=== PATIENT | female | born 1940 | race Caucasian/White ===

== ENCOUNTER 2016-08-23 08:52 | Day surgery (SDC) | payer MEDICARE ==
[2016-08-23] MEDS ORDERED: LACTATED RINGERS 1,000 ML IV ONE (09:12)
[2016-08-23] MEDS ORDERED: ceFAZolin 1 GM VIAL ONE (09:25)
[2016-08-23] MEDS ORDERED: BUPIVACAINE 0.25% PF 30 ML VIAL SUBQ ONE ×2 (10:14)
[2016-08-23] MEDS ORDERED: fentaNYL 100 MCG/2 ML VIAL IVP ONE (10:45)
[2016-08-23] MEDS ORDERED: PROPOFOL 200 MG/20 ML VIAL IVP ONE (10:45)
[2016-08-23] MEDS ORDERED: LIDOCAINE-MPF 2% 5 ML VIAL IM ONE (10:45)
[2016-08-23] MEDS ORDERED: MIDAZOLAM 2 MG/2 ML VIAL IVP ONE (10:45)
[2016-08-23] MEDS ORDERED: ACETAMINOPHEN 1,000 MG/100 ML 100 ML IV ONE (11:30)
== END 2016-08-23 08:53 | disposition home or self-care (01) ==
PROC: 0LN70ZZ Release Right Hand Tendon, Open Approach (ICD-10-PCS; principal; 2016-08-23 10:15)
DX: M65.311 Trigger thumb, right thumb (principal); M19.90 Unspecified osteoarthritis, unspecified site; F17.210 Nicotine dependence, cigarettes, uncomplicated; Z88.8 Allergy status to other drugs, medicaments and biological substances; Z82.62 Family history of osteoporosis; Z80.1 Family history of malignant neoplasm of trachea, bronchus and lung; Z80.8 Family history of malignant neoplasm of other organs or systems; Z82.49 Family history of ischemic heart disease and other diseases of the circulatory system
CPT/HCPCS: 26055; J0131; J7120

== ENCOUNTER 2017-08-19 13:29 | Outpatient (CLI) | payer MEDICARE ==
--- NOTE | 2017-08-20 19:54 | Mammography Report ---
DATE OF SERVICE: 08/19/2017 DIGITAL SCREENING MAMMOGRAM: 08/19/2017 CLINICAL INDICATION: A 77-year-old with history of benign biopsies for screening. TECHNIQUE: Routine CC and MLO projections as well as bilateral laterally exaggerated craniocaudal views were obtained of the breasts. COMPARISON: 02/2015, 09/2013, 09/2012, 09/2011, 05/2010, 04/2010. The breasts again demonstrate heterogeneously dense fibroglandular parenchyma bilaterally. Coarse and punctate, typically benign calcifications are present. There is a shifting pattern of circumscribed nodules bilaterally, compatible with waxing and waning cysts. No suspicious masses, clustered microcalcifications, or regions of architectural distortion are identified. IMPRESSION: Benign findings. RECOMMENDATIONS: Routine annual screening unless otherwise clinically indicated. BIRADS category 2 benign findings. STANDARD QUALIFYING STATEMENTS 1. This examination was reviewed with the aid of Computed-Aided Detection (CAD). 2. A negative or benign imaging report should not delay biopsy if clinically suspicious findings are present. Consider surgical consultation if warranted. More than 5% of cancers are not identified by imaging. 3. Dense breasts may obscure an underlying neoplasm. TD: 08/20/2017 20:53
== END 2017-08-19 13:30 | disposition home or self-care (01) ==
LOC: DI 13:29
PROVIDERS: ATTEND Internal Medicine
DX: Z12.31 Encounter for screening mammogram for malignant neoplasm of breast (principal)
CPT/HCPCS: 77067

== ENCOUNTER 2021-01-28 14:18 | Outpatient (CLI) | payer MEDICARE ==
--- NOTE | 2021-01-28 18:38 | Ultrasound Report ---
PROCEDURE: Pelvic w/Transvaginal INDICATIONS: VAG BLEEDING TECHNIQUE: Real-time scanning was performed of the pelvic organs, with image documentation. Additional endovagi nal scanning was necessary due to incomplete visualization of the adnexal and endometrial structures by transabdominal scanning. COMPARISON: None. FINDINGS: No pathologic free abdominal or pelvic fluid. Uterus: Uterus is normal in size at 8.8 x 4.6 x 6.7 cm. There are 2 incidental uterine fibroids, a l eft intramural fibroid measuring 3.6 x 3.0 x 3.2 cm, and a right submucosal fibroid measuring 2.9 x 2 .6 x 2.9 cm. The endometrium measures 28 mm in combined thickness, and has internal vascularity.. Ovaries: Not visualized, possibly secondary to involutional change IMPRESSION: 1. Findings are highly suspicious for endometrial carcinoma. There is marked thickening of the endome trium and there is flow within the endometrial contents. 2. Uterine fibroids. Comment: Consider CT abdomen and pelvis with contrast. 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 Reviewed by: Naveed Ruby MD on 01/28/2021 5:37 PM MICHEL Approved by: Naveed Ruby MD on 01/28/2021 5:37 PM MICHEL Station ID: [id number]
== END 2021-01-28 14:19 | disposition home or self-care (01) ==
LOC: DI 14:18
PROVIDERS: ATTEND Internal Medicine
DX: N93.9 Abnormal uterine and vaginal bleeding, unspecified (principal); R93.89 Abnormal findings on diagnostic imaging of other specified body structures; D25.1 Intramural leiomyoma of uterus; D25.0 Submucous leiomyoma of uterus

== ENCOUNTER 2021-03-06 13:59 | Outpatient (CLI) | payer MEDICARE | END 2021-03-06 14:00 | disposition home or self-care (01) | LOC: RT 13:59 | PROVIDERS: ATTEND Obstetrics & Gynecology | DX: Z01.810 Encounter for preprocedural cardiovascular examination (principal) | CPT/HCPCS: 93005 ==

== ENCOUNTER 2021-04-13 11:05 | Outpatient (CLI) | payer MEDICARE ==
[2021-04-13] MEDS ORDERED: IOPAMIDOL-300 100 ML VIAL ONE (11:10)
[2021-04-13] MEDS ORDERED: IOVERSOL 320 50 ML VIAL ONE (11:10)
[2021-04-13 11:29] LABS: CREATININE 1.1 mg/dL (0.4-1.0)
[2021-04-13] MEDS ORDERED: IOVERSOL 320 50 ML VIAL PO ONE (13:08)
[2021-04-13] MEDS ORDERED: IOPAMIDOL-300 100 ML VIAL IVP ONE (13:09)
--- NOTE | 2021-04-13 15:31 | CT Report ---
PROCEDURE: Abdomen/Pelvis W INDICATIONS: FIGO STAGE 2 ENDOMETRIAL CA CONTRAST: IV CONTRAST: Isovue 300 ml: 100 PO CONTRAST: Optiray 320 ml50 TECHNIQUE: After the administration of oral and intravenous contrast, 5 mm thick sections acquired from the diap hragms to the symphysis. 5 mm thick coronal and sagittal reformats were acquired. For radiation dos e reduction, the following was used: automated exposure control, adjustment of mA and/or kV accordin g to patient size. COMPARISON: Pelvic ultrasound 01/28/2021 FINDINGS: Image quality: Excellent. ABDOMEN: Lung bases: Please see the separate report of the chest CT performed the same time for detailed intra thoracic findings. Solid organs: Liver and spleen are normal in size and enhancement. Gallbladder is surgically absent . Biliary system is non dilated. Pancreas enhances normally. No adrenal nodules. Kidneys demonstr ate normal size and enhancement, without hydronephrosis. Peritoneum and bowel: Numerous diverticula are seen in the sigmoid colon without signs of acute diver ticulitis. No free fluid or air. Nodes and vessels: No retroperitoneal or mesenteric adenopathy by size criteria. Aorta and inferior vena cava are normal in size. Moderate aortic atherosclerotic calcifications. Miscellaneous: No ventral hernias. PELVIS: Genitourinary: Bladder wall thickness is normal. Status post hysterectomy. No focal pelvic mass is seen. Miscellaneous: A well-defined hypoattenuating area measuring 2.0 x 1.2 cm (60/3) is seen at the left pelvic sidewall adjacent to the adjacent to the left external iliac vein could represent a mildly enl arged lymph node versus postsurgical scarring or fluid. A few small left pelvic sidewall lymph nodes are seen measuring up to 6 mm and short axis diameter, not significantly enlarged by CT size criteria . Bones: No suspicious bony lesions. No vertebral body compression fractures. Degenerative changes a re seen in the sacroiliac joints and the lumbar spine. IMPRESSION: 1. Postsurgical changes from hysterectomy. No mass is seen at the vaginal cuff. 2. Nonspecific poorly defined low-density lesion at the left pelvic sidewall measuring 2.0 x 1.2 cm could represent postsurgical changes versus focal fluid or less likely a mildly enlarged lymph node. 3. No signs of distant metastatic disease in the abdomen or pelvis. 4. Colonic diverticulosis. Reviewed by: Brad Maguire MD on 04/13/2021 3:29 PM PDT Approved by: Brad Maguire MD on 04/13/2021 3:29 PM PDT Station ID: [id number]
--- NOTE | 2021-04-13 17:25 | CT Report ---
PROCEDURE: CHEST W INDICATIONS: FIGO STAGE 2 ENDOMETRIAL CA CONTRAST: IV CONTRAST: Isovue 300 ml: 100 PO CONTRAST: Optiray 320 ml50 TECHNIQUE: After the administration of intravenous contrast, images were acquired from the pulmonary apices to t he posterior costophrenic angles. Multiplanar MIP reformats were acquired. For radiation dose reduc tion, the following was used: automated exposure control, adjustment of mA and/or kV according to pa tient size. COMPARISON: None. FINDINGS: Image quality: Excellent. Lungs and pleura: There is biapical scarring. Scattered atelectasis in bilateral mid to lower lung f ields are seen more prominent in anterior medial aspect of left lung base. 6 mm solid nodule is seen adjacent to posterior lateral pleura of right lower lobe series 3 image 239. 4 mm slightly spiculated nodule is seen adjacent to posterior pleura of left upper lobe series 3 image 111. No other pulmonar y nodule or mass is seen. No pleural effusions or pneumothorax. Central and peripheral airways are p atent and normal in caliber. Mediastinum: Heart size is normal. No pericardial effusion. No mediastinal or hilar adenopathy by size criteria. Thoracic aorta and central pulmonary arteries are normal in size. Mild atherosclerot ic calcifications are noted in coronary arteries and thoracic aorta. Esophagus is normal in caliber. No hiatal hernia. Bones and chest wall: No suspicious bony lesions. No vertebral body compression fractures. No axil junito or supraclavicular adenopathy by size criteria. The thyroid is normal in size and there are no incidental findings.. Abdomen: Please refer to CT of abdomen and pelvis findings from the same day. IMPRESSION: 1. Biapical scarring and scattered atelectasis in bilateral lung espinal most prominent in left lung b ase as above. 2 tiny solid-appearing nodules in right lower lobe and left upper lobe as described abo ve. Follow-up CT study in 6-12 month is recommended for evaluation of stability. 2. No mediastinal or hilar lymphadenopathy. Mild coronary arthrosclerotic disease. No thoracic aortic aneurysm or dissection. CLINICAL RECOMMENDATION STATEMENTS: In patients <35 years with an ITN detected on CT, MRI, or extrathyroidal ultrasound, the Committee re commends further evaluation with dedicated thyroid ultrasound if the nodule is ?1 cm and has no suspi cious imaging features, and if the patient has normal life expectancy. In patients ?35 years with an ITN detected on CT, MRI, or extrathyroidal ultrasound, the Committee re commends further evaluation with dedicated thyroid ultrasound if the nodule is ?1.5 cm and has no saravanan picious imaging features, and if the patient has normal life expectancy. (ACR, 2014) Reviewed by: Demetrio Jenkins MD on 04/13/2021 5:24 PM PDT Approved by: Demetrio Jenkins MD on 04/13/2021 5:24 PM PDT Station ID: [id number]
== END 2021-04-13 11:06 | disposition home or self-care (01) ==
LOC: LAB 11:05
PROVIDERS: ATTEND Obstetrics & Gynecology
DX: C54.1 Malignant neoplasm of endometrium (principal); R93.5 Abnormal findings on diagnostic imaging of other abdominal regions, including retroperitoneum; K57.30 Diverticulosis of large intestine without perforation or abscess without bleeding; J98.11 Atelectasis; J98.4 Other disorders of lung; R91.8 Other nonspecific abnormal finding of lung field; I25.10 Atherosclerotic heart disease of native coronary artery without angina pectoris
CPT/HCPCS: 36415; 71260; 74177; 82565; 84520; Q9967

== ENCOUNTER 2021-06-16 10:15 | Outpatient (CLI) | payer MEDICARE ==
--- NOTE | 2021-06-16 13:51 | CONSULTATION NOTE ---
Palliative Care Consultation - Referral Referring Provider: Dr. Winston Hammond/Caron Carbajal PA-C Time of Visit: [id number] [place] [facility] [place]erral Reason: Uterine cancer/Advanced care planning - Information Sources Records reviewed: Previous records reviewed History/Review of Systems obtained from: Patient, Family (spouse, Morris) Exam limitations: Clinical condition (+[facility]) - History of Present Illness Brief History of Present Illness: This is a 81-year-old female who was seen and evaluated today for initial palliative care consultation due to uterine cancer and advance care planning. She is seen in the [facility] [place] with her spouse, Morris present and prefers to go by Karlene. Provider wore N95 mask. Patient noted vaginal spotting in January 2021 and presented to her PCP where she had a Pap obtained that was abnormal. She then was referred for transvaginal pelvic ultrasound and gynecology and was found to have abnormal biopsy result. She is status post SHAHID/BSO and is on carboplatin/paclitaxel weekly with a 3 week on and 1 week off cycle. Presently, her greatest complaint is in regards to fatigue. She does space out her activities to conserve her energy. Since initiation of chemotherapy she reports a diminished appetite and will "nipple" throughout the day. She is appreciated approximately 12 to 14 pound weight loss since January 2021. She is right-hand dominant and her port is on her right chest wall. She finds that having the port on the right chest wall can interfere with some of her a ctivities due to discomfort such as holding a book for long period of time or vacuuming. When she resolves the activity then the pain is resolved. She takes antiemetic therapy on the Saturday and Saturday following chemotherapy and this results in constipating effects. She is able to manage this with stool softener on these days and has recently utilized prune juice with positive effects. She denies constipation as an issue at the present time. She is drinking a lot of water throughout the day and despite cutting back before bed will often wake up due to nocturia. Sometimes it can take a bit of time before she falls back to sleep. She is napping during the day. Typically getting approximately 6 to 7 hours of sleep a night. She is presently can completing a course of Bactrim for acute cystitis. She is no longer having dysuria. Patient is seen in treatment chair with right port accessed, well-groomed no evidence of acute distress. Medical/Surgical History - Past Medical History Cardiovascular: reports: Hypertension Respiratory: reports: None Endocrine/Autoimmune: reports: None GI: reports: Colon polyps, Other (Lactose intolerant) [facility]: reports: Uterine cancer (2020) : reports: Other (Over active bladder) HEENT: reports: None Psych: reports: None Musculoskeletal: reports: Chronic back pain (since age 19 due to "disc problem.") Derm: reports: None MRSA Hx?: No - Past Surgical History General: reports: Cholecystectomy (2010), Appendectomy, Bowel surgery (partial colectomy 2004), Other (+tonsilectomy 1951) /[facility]: reports: Other (+TH/BSO; breast biopsies x 4 (benign)) Derm: reports: Skin grafts - Substance History Use: Uses substance without health or social issues: Tobacco (Less than 1/2 pack per day--has quite in the past) Social History - Living Situation Living arrangement: At home Living Situation: With spouse/s.o. Support System: Patient grew up in [place], [place]. 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 She and her , Morris will have been 60 years in July 2021. They have 2 children, a girl and a boy. Their daughter resides in [place]. Their son resides in [place], [place] and through him they have 2 grandchildren. They relocated to [facility] in [place]. Prior to Covid19 the patient was involved with a [employer] group and every year would go to a quilting retreat at [facility]. She enjoys reading, watching TV. Her constant highway maintenance crew worker is her Siamese cat, cocoa. The couple also have dacMatternetvt. They live on a 5 [address] property. Has received her Samanta Shoesid19 booster. Family History - Family History Family History: Mother: , Father: , Sister: Alive and Well, Cancer (Colon Cancer) Family History Comment/Other: Father at age 89 with lung cancer; mother at age 87 due to Alzheimer's disease; daughter was born with cerebral palsy and was premature. Medications/Allergies - Medications Home Medications: Ambulatory Orders Medication Instructions Recorded Confirmed Vit D3-Vit K/Berberine/Hops 2,000 units ORAL DAILY 11/17/14 05/12/21 [Ostera Tablet] Lidocaine/Prilocain 2.5% Cream 5 applic TOP UD #1 gm 04/18/21 05/12/21 [Emla 2.5% Cream] Ondansetron HCl [Zofran] 8 mg PO UD #32 tab 04/18/21 05/12/21 Prochlorperazine Maleate 10 mg PO Q6HR PRN #30 tab 04/18/21 05/12/21 [Compazine] Diphenoxylate/Atropine [Lomotil] 2.5 mg PO PRN 05/26/21 Acetaminophen [Acetaminophen Extra 1 tab PO TID PRN 06/16/21 06/16/21 Strength] Docusate Sodium [Dok] 100 mg PO QPM PRN 06/16/21 06/16/21 Senna [Senokot] 8.6 mg PO QPM PRN 06/16/21 06/16/21 dexAMETHasone [Decadron] 8 mg PO DAILY #30 tablet 06/16/21 - Allergies Allergies/Adverse Reactions: Allergies Allergy/AdvReac Type Severity Reaction Status Date / Time aspirin AdvReac Nausea Verified 06/16/21 13:59 NSAIDS (Non-Steroidal AdvReac Nausea Verified 08/22/16 14:16 Anti-Inflamma Review of Systems - Constitutional Constitutional: reports: Fatigue, Weight loss (since January 2021). denies: Fever - Eyes Eyes: reports: Corrective lenses. denies: Irritation - Ears, Nose & Throat Ears, Nose & Throat: reports: Hearing loss, Hearing aids, Tinnitus, Other (Bad taste in mouth) - Cardiovascular Cardiovascular: reports: Edema (in the evenings-- mild that will resolve over night with elevation). denies: Chest pain, Exertional dyspnea - Respiratory Respiratory: reports: Cough (intermittent, +tobacco abuse), Sputum production (clear when occurs with cough). denies: Wheezing - Gastrointestinal Gastrointestinal: reports: Constipation (see HPI), Nausea (resolved with zofran), Good appetite. denies: Abdominal pain, Abdominal distention, Diarrhea, Vomiting - Genitourinary Genitourinary: denies: Dysuria (resolved with Bactrim DS course with last dose today) - Musculoskeletal Musculoskeletal: reports: Back pain (chronic). denies: Transfer issues - Integumentary Integumentary: denies: Rash - Neurological Neurological: denies: Headache, Dizziness - Psychiatric Psychiatric: reports: Depression (ocassionally) - Endocrine Endocrine: denies: Diabetes type 2 - All Other Systems All Other Systems: reports: Reviewed and negative Physical Exam - Vital Signs Temperature: 36.2 C Pulse Rate: 84 O2 Saturation: 97 (on RA) Blood Pressure: 126/53 - Physical Exam General Appearance: positive: No acute distress, Alert Eyes Bilateral: positive: Normal inspection, Other (+corrective lenses) ENT: positive: No signs of dehydration, Other (+hearing aids in place) Neck: positive: Trachea midline Cardiovascular: positive: Regular rate & rhythm, No murmur Respiratory: positive: No respiratory distress, Breath sounds nml, Other (+right chestwall port). negative: Wheezes Abdomen: positive: Non-tender, Soft, Nml bowel sounds. negative: Distended Skin: positive: No symptoms Extremities: positive: No pedal edema Neurologic/Psychiatric: positive: Oriented x3, Mood/affect nml, Other (+Reserved) Palliative Care - POLST Patient has POLST: No Pain: No pain Tiredness/Fatigue: Moderate (4-6) Drowsiness/Sedation: Moderate (4-6) Nausea: Mild (1-3) Anorexia: Moderate (4-6) Dyspnea: None Depression: Mild (1-3) Anxiety: Moderate (4-6) Feelings of wellbeing/Perceived Quality of Life: Good Sleep: Sleeps well Constipation: Yes, Managed Performance Status: Patient is ambulatory without assistive device. No history of falls. Reduced activity due to right chest wall port. PPS 80% - Palliative Care Discussion: Patient presents with no sick significant burden related to disease process and chemotherapy as fatigue and constipation due to antiemetic therapy. She is utilizing stool softeners and prune juice with positive effect for her constipation and reviewed titration of Dukas 8 and initiation of senna in addition to prune juice for managing her symptoms with openness regarding recommendations. The patient does express isolation due to Covid19 and lack of social interactions and she is quite sequestered in her home due to fear of kirit Covid19 despite being vaccinated even with a Covid19 booster in light of her receiving chemotherapy. Normalized her fears. She is looking forward to having family over for the holidays in a small group but does express concerns regarding Covid19. Gently suggested having family members be tested for [id number] to 72 hours before presenting to the home at this would diminish the patient's fear and anxiety. The patient is also expressed fear regarding how well she will respond to treatment. Normalized the feeling of fear and will need to continue to explore moving forward. She did open up today that she has attended mormon in the past but not in recent years. She does have a christian orientation. 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 Discussed management of bowel regimen today. Palliative care to continue to build rapport, explore goals of care, provide symptom management and anticipatory guidance with care coordination. Recommendations/Counseling Done: 1. Constipation due to antiemetic use. Normalized Zofran having constipated effects. Continue utilization of Docusate on days antiemetic is administered and introduced the role of senna as a laxative as needed and reviewed titration of medications. Would also continue utilization of prune juice as this is had effective response. Continue to monitor. 2. Right chest wall port. Intermittent discomfort exacerbated by increased activity. Advised to pace activity and avoid activities that would exacerbate discomfort. Continue utilization of acetaminophen as needed for acute discomfort. 3. Chemo-induced fatigue. Encourage pacing activities to conserve energy. Encouraged to continue activities that she enjoys and finds pleasurable. 4. Covid19 risk. Patient expresses concerns and fear regarding kirit Covid19. Normalized concerns given she is presently on chemotherapy. Discussed strategies to mitigate risk. And given her underlying fears advised for family members to obtain Covid19 testing prior to close contact to reduce her anxiety and fear. 5. Stage II serous carcinoma of endometrium. Presently undergoing treatment with carboplatin/paclitaxel weekly. To undergo vaginal brachytherapy after completion of chemotherapy with Dr. Ayala. COntinued to be followed by oncology. 6. Advance care planning. Patient appropriately expresses concerns regarding response to treatments. We will continue to tease out goals of care that the patient has moving forward and what is most important to her in the context of her disease process to minimize symptom burden. Palliative care to continue to provide support. Introduced the role of palliative care lap runner and declines at the present time. Total time spent 60 minutes with greater than 50% of the spent in counseling and coordination of care with the patient, spouse, and [facility] staff, review of medical records; introduction of palliative care and palliative care role; examination of patient; supportive listening; and anticipatory guidance. Disclaimer: The chart note was formulated using voice recognition technology and unfortunately sound alike errors may occur.
== END 2021-06-16 10:16 | disposition home or self-care (01) ==
LOC: PC 10:15
PROVIDERS: ATTEND Nurse Practitioner Family
DX: Z51.5 Encounter for palliative care (principal); C54.1 Malignant neoplasm of endometrium; K59.03 Drug induced constipation; T45.0X5A Adverse effect of antiallergic and antiemetic drugs, initial encounter; R53.83 Other fatigue; T45.1X5A Adverse effect of antineoplastic and immunosuppressive drugs, initial encounter; E11.9 Type 2 diabetes mellitus without complications; F32.9 Major depressive disorder, single episode, unspecified; H91.90 Unspecified hearing loss, unspecified ear; F17.210 Nicotine dependence, cigarettes, uncomplicated; Z90.710 Acquired absence of both cervix and uterus; Z79.899 Other long term (current) drug therapy; Z90.79 Acquired absence of other genital organ(s); Z90.722 Acquired absence of ovaries, bilateral
CPT/HCPCS: 99205

== ENCOUNTER 2021-07-03 15:30 | Outpatient (CLI) | payer MEDICARE ==
--- NOTE | 2021-07-03 16:27 | CONSULTATION NOTE ---
Palliative Care Follow Up - Referral Referring Provider: Dr. Winston Hammond Time of Visit: [id number] Referral setting: [facility] Referral Reason: Insomnia/Uterine Ca - Information Sources Records reviewed: Previous records reviewed History/Review of Systems obtained from: Patient, Family (spouse, Reilly) Exam limitations: Clinical condition (+TORRES MARTINEZ) - History of Present Illness Update Brief HPI Update: This is a 81-year-old female who was seen and evaluated today in follow-up at [facility] clinic with her spouse, Morris present regarding uterine cancer and insomnia. Provider wore N95 mask. Her biggest complaint remains fatigue. She does space out her activities during the day to conserve her energy. She will nap during the day. Her hemoglobin and hematocrit is trending down due to chemotherapy effects in her last hemoglobin and and hematocrit was 8.9 and 27.2% on 06/30/2021. The patient is avoiding Zofran due to constipating effects from the antiemetic and instead has been utilizing krzysztof bety or krzysztof which has been positive. She reports to insomnia in the evening when everything is quiet when her anxiety seems to come to the surface. She has found her quilting as a distractor in the past for her anxiety as well as journaling. She has not done either of these activities recently. She is also reporting constipating effects during chemotherapy. The patient met with AMERICA Fernandez earlier this afternoon and a plan was advised regarding increasing her bowel regimen before and after chemotherapy. The patient also reports that utilization of prune juice is extremely effective. The patient continues on carboplatin and paclitaxel weekly with three weeks on and 1 week off. She found she tolerates the therapy better with a break. She has completed 3 cycles. The patient is seen in the treatment chair, well groomed and articulate with no evidence of acute distress. Past Medical History: Patient has a past medical history of hypertension, lactose intolerance, uterine cancer 2020, overactive bladder, chronic back pain since age 19, breast biopsies x4 that were benign, bowel surgery with partial colectomy 2004, appendectomy, cholecystectomy 2010, tonsillectomy, colon polyps, + tobacco abuse. +COVID-19 vaccine and booster. Social History - Living Situation Living arrangement: At home Living Situation: With spouse/s.o. Support System: Patient grew up in [place], [place]. The patient and her spouse, Morris have been for 60 years. They have 2 children, a girl and a boy. Their daughter resides in [place]. They relocated to [facility] in [place]. The couple spent Thanksgiving with her daughter which they enjoyed and prefer to limit potential exposure to Covid19. Medications/Allergies - Medications Home Medications: Ambulatory Orders Medication Instructions Recorded Confirmed Vit D3-Vit K/Berberine/Hops 2,000 units ORAL DAILY 11/17/14 05/12/21 [Ostera Tablet] Lidocaine/Prilocain 2.5% Cream 5 applic TOP UD #1 gm 04/18/21 05/12/21 [Emla 2.5% Cream] Ondansetron HCl [Zofran] 8 mg PO UD #32 tab 04/18/21 05/12/21 Prochlorperazine Maleate 10 mg PO Q6HR PRN #30 tab 04/18/21 05/12/21 [Compazine] Diphenoxylate/Atropine [Lomotil] 2.5 mg PO PRN 05/26/21 Acetaminophen [Acetaminophen Extra 1 tab PO TID PRN 06/16/21 06/16/21 Strength] Docusate Sodium [Dok] 100 mg PO QPM PRN 06/16/21 06/16/21 Senna [Senokot] 8.6 mg PO QPM PRN 06/16/21 06/16/21 dexAMETHasone [Decadron] 8 mg PO DAILY #30 tablet 06/16/21 Melatonin 1 mg PO QPM 07/03/21 07/03/21 - Allergies Allergies/Adverse Reactions: Allergies Allergy/AdvReac Type Severity Reaction Status Date / Time aspirin AdvReac Nausea Verified 06/16/21 13:59 NSAIDS (Non-Steroidal AdvReac Nausea Verified 08/22/16 14:16 Anti-Inflamma Review of Systems - Constitutional Constitutional: reports: Fatigue (naps during the day), Weight loss (since January 2021). denies: Fever - Eyes Eyes: reports: Corrective lenses - Ears, Nose & Throat Ears, Nose & Throat: reports: Hearing loss, Hearing aids - Cardiovascular Cardiovascular: reports: Edema (in the evenings-- mild that will resolve over night with elevation). denies: Chest pain, Exertional dyspnea - Respiratory Respiratory: reports: Cough (intermittent, +tobacco abuse). denies: Wheezing - Gastrointestinal Gastrointestinal: reports: Abdominal distention, Constipation (see HPI), Nausea (see HPI), Good appetite. denies: Abdominal pain, Diarrhea, Vomiting - Genitourinary Genitourinary: reports: Nocturia. denies: Dysuria - Musculoskeletal Musculoskeletal: reports: Back pain (chronic). denies: Transfer issues - Neurological Neurological: denies: General weakness, Headache - Psychiatric Psychiatric: reports: Depression (ocassionally), Anxiety - Hematologic/Lymphatic Hematologic/Lymph: reports: Anemia (due to chemotherapy) - All Other Systems All Other Systems: reports: Reviewed and negative Physical Exam - Vital Signs Temperature: 36.4 C Pulse Rate: 80 O2 Saturation: 97 Blood Pressure: 127/53 - Physical Exam General Appearance: positive: No acute distress, Alert Eyes Bilateral: positive: Other (+corrective lenses) ENT: positive: No signs of dehydration, Other (+hearing aids in place) Neck: positive: Trachea midline Cardiovascular: positive: Regular rate & rhythm, No murmur Respiratory: positive: No respiratory distress, Breath sounds nml Abdomen: positive: Non-tender, Soft, Nml bowel sounds Skin: positive: No symptoms Extremities: positive: No pedal edema Neurologic/Psychiatric: positive: Oriented x3, Mood/affect nml, Other (+Reserved) Palliative Care - POLST Patient has POLST: No - Palliative Care Discussion: The patient continues to express fears regarding kirit Covid19 and this has limited her social interactions and sequestered her in her home. She has been vaccinated. Her spouse/DPOA is looking to obtain his Covid19 booster. The patient and spouse both relate that this "is new to them" and referencing to cancer and chemotherapy. They feel that they are navigating "as best we can." The patient expresses some anxieties that will come up and surface in the evenings and discussed utilization of journaling as a way to assist with anxiety as it is not every night. She also does express some insomnia and bakari mmendation made to trial melatonin to reset her sleep/wake cycle as a trial. 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 Reviewed techniques to manage nausea with krzysztof as well as underlying anxiety and insomnia. Palliative care to continue to build rapport, explore goals of care, provide symptom management and anticipatory guidance with care coordination. Recommendations/Counseling Done: 1. Insomnia. With some underlying anxiety intermittently. Discussed trial of melatonin 1 mg in the evening 1 hour prior to bed. Discussed limiting electronics 1 hour prior to bedtime. Lastly, with anxiety due to circumstance that is intermittent recommendation made to journal on the evenings that the patient's anxiety is increased for reflection in the morning and allow sleep to commence. Patient is open to this suggestion. 2. Chemo-induced constipation. Advised by AMERICA Fernandez to increase [id number]-[id number] constipation medicationsAt the beginning of chemotherapy in the morning and the evening and the subsequent morning and evening. Patient and spouse are unclear regarding eghq-efu-[id number] bowel medications they have within the home and advised to bring in all medications including awxd-uzx-udhrsle m edications at next follow-up visit with AMERICA Fernandez and/or this palliative care CONTACT CENTER ASSOCIATE for review and in agreement. May continue to utilize prune juice to assist with constipation affects this is been positive response in the past. 3. Nausea due to chemotherapy. Declines taking dexamethasone due to fear of side effects. Continue to avoid ondansetron as this is potential to contribute to constipation. Discussed utilization of krzysztof to and krzysztof bety to reduce nausea. Presently, the patient's nausea is minimal. 4. Stage II serous carcinoma of endometrium. Presently undergoing treatment w ith carboplatin/paclitaxel weekly. Continue to be followed by oncology. I Total time spent 30 minutes with greater than 50% of the spent in counseling and coordination of care with MAC RNs, AMERICA Fernandez, patient and spouse; examination of patient; review of lab work; symptom management strategies; and advance care planning. Disclaimer: The chart note was formulated using voice recognition technology and unfortunately sound alike errors may occur.
== END 2021-07-03 15:31 | disposition home or self-care (01) ==
LOC: PC 15:30
PROVIDERS: ATTEND Nurse Practitioner Family
DX: Z51.5 Encounter for palliative care (principal); G47.00 Insomnia, unspecified; R53.83 Other fatigue; K59.03 Drug induced constipation; R11.0 Nausea; D64.81 Anemia due to antineoplastic chemotherapy; T45.1X5A Adverse effect of antineoplastic and immunosuppressive drugs, initial encounter; F41.9 Anxiety disorder, unspecified; C54.1 Malignant neoplasm of endometrium; Z79.899 Other long term (current) drug therapy
CPT/HCPCS: 99214

== ENCOUNTER 2021-12-15 15:27 | Outpatient (CLI) | payer MEDICARE ==
[2021-12-15] MEDS ORDERED: IOPAMIDOL-300 100 ML VIAL ONE (16:52)
== END 2021-12-15 15:28 | disposition home or self-care (01) ==
LOC: DI 15:27
PROVIDERS: ATTEND Internal Medicine
DX: Z53.9 Procedure and treatment not carried out, unspecified reason (principal)

== ENCOUNTER 2021-12-15 18:24 | Emergency (ER) | payer MEDICARE ==
[2021-12-15] MEDS ORDERED: SODIUM CHLORIDE 0.9% 1,000 ML IV STA (18:48)
[2021-12-15 19:04] LABS: BASOPHILS % (AUTO) 0.5 %; EOSINOPHILS # (AUTO) 0.1 10^3/uL (0.0-0.7); EOSINOPHILS % (AUTO) 2.1 %; HCT - HEMATOCRIT 35.1 % (37.0-47.0); HGB - HEMOGLOBIN 11.2 g/dL (12.0-16.0); LYMPHOCYTES # (AUTO) 1.7 10^3/uL (1.5-3.5); LYMPHOCYTES % (AUTO) 27.9 %; MEAN CORPUSCULAR HEMOGLOBIN 33.7 pg (27.0-31.0); MEAN CORPUSCULAR HGB CONC 31.9 g/dL (32.0-36.0); MEAN CORPUSCULAR VOLUME 105.7 fL (81.0-99.0); MEAN PLATELET VOLUME 9.6 fL (7.9-10.8); MONOCYTES # (AUTO) 0.5 10^3/uL (0.0-1.0); MONOCYTES % (AUTO) 8.7 %; NEUTROPHILS # (AUTO) 3.8 10^3/uL (1.5-6.6); NEUTROPHILS % (AUTO) 60.6 %; PLT - PLATELET COUNT 273 10^3/uL (130-450); RED BLOOD COUNT 3.32 10^6/uL (4.20-5.40); RED CELL DISTRIBUTION WIDTH 13.7 % (12.0-15.0); WHITE BLOOD COUNT 6.2 x10^3/uL (4.8-10.8)
[2021-12-15] MEDS ORDERED: IOPAMIDOL-300 100 ML VIAL ONE (19:08)
[2021-12-15 19:14] LABS: ALBUMIN 3.8 g/dL (3.2-5.5); ALBUMIN/GLOBULIN RATIO 1.2 (1.0-2.2); BILIRUBIN,TOTAL 0.6 mg/dL (0.2-1.0); CREATININE 0.8 mg/dL (0.4-1.0); POTASSIUM 3.8 mmol/L (3.5-5.0)
--- NOTE | 2021-12-15 19:52 | ED Physician Documentation ---
History of Present Illness - Stated complaint Stated Complaint: SOA - Chief complaint Chief Complaint: Resp - Additonal information Additional information: 81-year-old female was referred to the emergency department from her primary care office for evaluation of pleuritic chest pain that began this morning when she woke up. She reports she has pain that radiates to her back anytime she takes a deep breath. This lady is unfortunately recently diagnosed with endometrial cancer and has finished Multiple rounds of chemotherapy but it was stopped early due to her feeling poorly. She is status post total abdominal hysterectomy. She takes no medications with the exception of occasional Tylenol. Denies any previous history of blood clots. Room air saturations are 100%. She denies feeling short of air. No unilateral leg swelling posterior calf pain tenderness. Review of Systems Constitutional: denies: Fever, Chills Cardiac: reports: Chest pain / pressure (Pleuritic chest pain). 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 : Other HEENT: None Psych: None Musculoskeletal: Chronic back pain Derm: None - Past Surgical History General: Cholecystectomy, Appendectomy, Bowel surgery, Other /MUD PLANT OPERATOR: Other Derm: Skin grafts - Present Medications Home Medications: Ambulatory Orders Medication Instructions Recorded Confirmed Vit D3-Vit K/Berberine/Hops 2,000 units ORAL DAILY 11/17/14 10/20/21 [Ostera Tablet] Lidocaine/Prilocain 2.5% Cream 5 applic TOP UD #1 gm 04/18/21 10/20/21 [Emla 2.5% Cream] Diphenoxylate/Atropine [Lomotil] 2.5 mg PO DAILY 05/26/21 10/20/21 Acetaminophen [Acetaminophen Extra 1 tab PO TID PRN 06/16/21 10/20/21 Strength] Docusate Sodium [Dok] 100 mg PO QPM PRN 06/16/21 10/20/21 Senna [Senokot] 8.6 mg PO QPM PRN 06/16/21 10/20/21 Lactase [Lactaid] 3,000 unit PO DAILY 09/08/21 10/20/21 Prochlorperazine Maleate 10 mg PO Q6HR PRN 09/08/21 10/20/21 [Compazine] - Allergies Allergies/Adverse Reactions: Allergies Allergy/AdvReac Type Severity Reaction Status Date / Time aspirin AdvReac Nausea Verified 12/15/21 18:28 NSAIDS (Non-Steroidal AdvReac Nausea Verified 12/15/21 18:28 Anti-Inflamma - Social History Does the pt smoke?: No Smoking Status: Never smoker - POLST Patient has POLST: No PD ED PE NORMAL - General General: Alert and oriented X 3, No acute distress, Well developed/nourished - HEENT HEENT: Atraumatic, Moist mucous membranes - Neck Neck: Supple, no meningeal sign, No adenopathy - Cardiac Cardiac: RRR, No murmur, No gallop - Respiratory Respiratory: No respiratory distress, Clear bilaterally - Abdomen Abdomen: Normal bowel sounds, Soft, Non tender - Back Back: No CVA TTP, No spinal TTP - Derm Derm: Normal color, Warm and dry, No rash - Extremities Extremities: No deformity, No tenderness to palpate, Normal ROM s pain - Neuro Neuro: Alert and oriented X 3, 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 manager 2-12 intact Eye Opening: Spontaneous Motor: Obeys Commands Verbal: Oriented GCS Score: 15 - Psych Psych: Normal mood Results - Vitals Vitals: Vital Signs - 24 hr 12/15/21 12/15/21 12/15/21 18:28 19:35 21:20 Temperature 36.2 C L 36.4 C L Heart Rate 76 75 78 Respiratory 24 23 16 Rate Blood Pressure 128/56 L 123/62 127/60 O2 Saturation 98 100 100 Oxygen O2 Source Room air - Labs Labs: Laboratory Tests 12/15/21 12/15/21 12/15/21 18:57 18:57 18:57 WBC 6.2 RBC 3.32 L Hgb 11.2 L Hct 35.1 L MCV 105.7 H MCH 33.7 H MCHC 31.9 L RDW 13.7 Plt Count 273 MPV 9.6 Neut # (Auto) 3.8 Lymph # (Auto) 1.7 [place] # (Auto) 0.5 Eos # (Auto) 0.1 Baso # (Auto) 0.0 Absolute Nucleated RBC 0.00 Nucleated RBC % 0.0 Sodium 141 Potassium 3.8 Chloride 102 Carbon Dioxide 30 Anion Gap 9.0 BUN 15 Creatinine 0.8 Estimated GFR (MDRD) 69 L Glucose 78 Calcium 9.0 Total Bilirubin 0.6 AST 16 ALT 13 Alkaline Phosphatase 106 Troponin I High Sens 4.3 Total Protein 7.0 Albumin 3.8 Globulin 3.2 Albumin/Globulin Ratio 1.2 Lipase 33 - Rads (name of study) CT PA Radiology: Final report received (No evidence of pulmonary embolism. Small pulmonary nodules in the right lower and left upper lobe stable compared to prior study.) PD MEDICAL DECISION MAKING - ED course Complexity details: reviewed results, re-evaluated patient, considered differential, d/w patient, d/w family ED course: 81-year-old female who has a history of endometrial cancer status postchemotherapy who is being followed closely by hematology/oncology presented to the emergency department for pulmonary embolus rule out. She woke up this morning with pleuritic chest pain with radiation to her back. There have been no fevers, no reports of shortness of air or hypoxia. Her vital signs appear unremarkable and her screening labs do not show any worrisome findings. CT pulmonary angio does not find evidence of a pulmonary embolus. She does have stable pulmonary nodules essentially unchanged from previous study. These findings were discussed with the patient. She will continue follow-up with PCP as well as hematology oncology Departure - Departure Disposition: 01 Home, Self Care Clinical Impression: Pleuritic chest pain, Pulmonary nodules, Endometrial cancer Condition: Stable Record reviewed to determine appropriate education?: Yes Comments: Yanet you are seen today in the emergency department to rule out a pulmonary embolus or a blood clot in your lungs. Because of your history of cancer you are at higher risk for these. The angiogram completed on your lungs does not show any findings to suggest a blood clot. We do again see the incidental findings of small pulmonary nodules in the lower lobes of your right lung as well as your left upper lobe. These appear stable in size compared to your previous CAT scan. Your primary doctors should consider a 12-month follow-up CT to make sure that these remain stable. Please discuss this ED visit with your primary doctor. It is possible you could simply have a pulled muscle. Please take ibuprofen or Tylenol for any discomfort. If you develop sudden severe chest pain, have severe shortness of air, any fainting episodes or racing heart then please return immediately to the ER for second evaluation.
[2021-12-15] MEDS ORDERED: IOPAMIDOL-300 100 ML VIAL IVP ONE (20:17)
--- NOTE | 2021-12-15 21:35 | CT Report ---
PROCEDURE: ANGIO CHEST W/WO INDICATIONS: pleuritic chest pain CONTRAST: IV CONTRAST: Isovue 300 ml: 100 PO CONTRAST: *NO PO CONTRAST TECHNIQUE: After the administration of intravenous contrast, 2 mm axial images were acquired from the pulmonary apices to the posterior costophrenic angles during the arterial phase. In addition, 1 mm lung kernel and 5 mm soft tissue kernel reconstructions were performed. 3-dimensional coronal oblique maximum int ensity projection (MIP) reformats, 8 mm axial MIP, and 5 mm coronal and sagittal MPR reformats were t hen performed through the thorax. For radiation dose reduction, the following was used: automated exp osure control, adjustment of mA and/or kV according to patient size. COMPARISON: Chest CT 04/13/2021. FINDINGS: Image quality: Excellent. Pulmonary arteries: Pulmonary arteries are normal in size, and demonstrate no intraluminal filling d efects to suggest central pulmonary embolism. Lungs and pleura: There is scarring redemonstrated bilaterally most prominent within the left lung ba se. A peripheral subpleural 0.5 cm nodule in the right lower lobe on series 6 image 227 appears uncha nged. In the left upper lobe, there is a posterior pleural-based irregular nodule measuring up to 0.4 cm which also appears unchanged and is suggestive of scarring. No acute consolidation. There is mild scarring also redemonstrated within the lung apices. No pleural effusions or pneumothorax. Central and peripheral airways are patent. Mediastinum: Heart size is normal, without pericardial effusion. No mediastinal or hilar adenopathy . Thoracic aorta is normal in caliber and enhancement. Esophagus is normal in caliber, with a small hiatal hernia. Bones and chest wall: No suspicious bony lesions. Ribs and thoracic spine appear intact throughout. No axillary or supraclavicular adenopathy. The thyroid demonstrates no discrete nodules. Abdomen: Visualized upper abdomen demonstrate surgical absence of the gallbladder. There is mild dil atation of the right renal pelvis and visualized proximal right ureter IMPRESSION: 1. No evidence of pulmonary embolism. 2. Small pulmonary nodules in the right lower lobe and left upper lobe appears stable compared to the prior study. The findings remain indeterminate. Consider a follow-up study in 12 months to demonstra te stability Reviewed by: Ernie Rios MD on 12/15/2021 9:34 PM PDT Approved by: Ernie Rios MD on 12/15/2021 9:34 PM PDT Station ID: [id number]
[2021-12-15 21:53] VITALS: BP 125/60
== END 2021-12-15 21:54 | disposition home or self-care (01) ==
LOC: ED 18:24
DX: R07.89 Other chest pain (principal); R91.8 Other nonspecific abnormal finding of lung field; C54.1 Malignant neoplasm of endometrium; I10 Essential (primary) hypertension
CPT/HCPCS: 36415; 71275; 80053; 83690; 84484; 85025; 99282; 99284; Q9967

== ENCOUNTER 2021-12-26 12:03 | Outpatient (CLI) | payer MEDICARE ==
[2021-12-26 12:42] LABS: BASOPHILS % (AUTO) 0.7 %; EOSINOPHILS # (AUTO) 0.1 10^3/uL (0.0-0.7); EOSINOPHILS % (AUTO) 2.6 %; HGB - HEMOGLOBIN 11.4 g/dL (12.0-16.0); LYMPHOCYTES # (AUTO) 1.2 10^3/uL (1.5-3.5); LYMPHOCYTES % (AUTO) 28.7 %; MEAN CORPUSCULAR HEMOGLOBIN 33.9 pg (27.0-31.0); MEAN CORPUSCULAR HGB CONC 31.7 g/dL (32.0-36.0); MEAN CORPUSCULAR VOLUME 107.1 fL (81.0-99.0); MEAN PLATELET VOLUME 9.3 fL (7.9-10.8); MONOCYTES # (AUTO) 0.4 10^3/uL (0.0-1.0); NEUTROPHILS # (AUTO) 2.5 10^3/uL (1.5-6.6); NEUTROPHILS % (AUTO) 58.8 %; PLT - PLATELET COUNT 301 10^3/uL (130-450); RED BLOOD COUNT 3.36 10^6/uL (4.20-5.40); RED CELL DISTRIBUTION WIDTH 13.6 % (12.0-15.0); WHITE BLOOD COUNT 4.2 x10^3/uL (4.8-10.8)
[2021-12-26 12:48] LABS: ALBUMIN 3.8 g/dL (3.2-5.5); ALBUMIN/GLOBULIN RATIO 1.2 (1.0-2.2); BILIRUBIN,TOTAL 0.8 mg/dL (0.2-1.0); CALCIUM 9.4 mg/dL (8.5-10.3); POTASSIUM 3.9 mmol/L (3.5-5.0)
--- NOTE | 2021-12-26 13:26 | Ultrasound Report ---
PROCEDURE: Duplex Ext Veins Right INDICATIONS: R LE EDEMA TECHNIQUE: Real-time imaging, as well as color and pulse Doppler interrogation, were performed of the lower extr emity deep veins from the inguinal ligament to the popliteal fossa. COMPARISON: None. FINDINGS: The deep veins are normally compressible, and free of intraluminal thrombus. Color and pu lse Doppler demonstrate normal phasic intraluminal flow. There is normal augmentation response to di stal compression maneuver. 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 IMPRESSION: Negative for deep venous spondylosis of the right lower extremity Reviewed by: Rakesh Jaquez MD on 12/26/2021 1:25 PM PDT Approved by: Rakesh Jaquez MD on 12/26/2021 1:25 PM PDT Station ID: [id number]
[2021-12-27 17:10] LABS: FERRITIN 175.8 ng/mL (11.0-306.8)
== END 2021-12-26 12:04 | disposition home or self-care (01) ==
LOC: DI 12:03
PROVIDERS: ATTEND Internal Medicine
DX: R60.0 Localized edema (principal); R22.41 Localized swelling, mass and lump, right lower limb; D64.9 Anemia, unspecified; D60.9 Acquired pure red cell aplasia, unspecified; C55 Malignant neoplasm of uterus, part unspecified
CPT/HCPCS: 36415; 80053; 82607; 82728; 83880; 84443; 85025

== ENCOUNTER 2022-02-12 13:24 | Outpatient (CLI) | payer MEDICARE | END 2022-02-12 13:25 | disposition home or self-care (01) | LOC: LAB 13:24 | PROVIDERS: ATTEND Registered Nurse Obstetric, High-Risk | DX: Z08 Encounter for follow-up examination after completed treatment for malignant neoplasm (principal); C54.1 Malignant neoplasm of endometrium; Z85.42 Personal history of malignant neoplasm of other parts of uterus | CPT/HCPCS: 36415; 86304 ==

== ENCOUNTER 2022-02-21 08:55 | Outpatient (CLI) | payer MEDICARE ==
--- NOTE | 2022-02-21 10:24 | Ultrasound Report ---
PROCEDURE: Abdomen Limited INDICATIONS: RIGHT LOWER QUAD ABD MASS TECHNIQUE: Real-time focused scanning was performed of the abdomen, with image documentation. COMPARISON: None FINDINGS: In the right lower quadrant there is a heterogenous nonvascular structure measuring 2.5 x 2.1 x 2.1 cm which is in the subcutaneous fat outside of the abdominal wall with a small hypoechoic t ract to the surface, likely scar from prior surgery. The surrounding tissue however appears hypervasc ular. IMPRESSION: Ultrasound imaging is equivocal, the findings could be due to hypertrophic scarring, morales katelin increased vascularity suggests a possible infectious etiology and possible abscess. Recommend CT. Reviewed by: Richi Conrad on 02/21/2022 10:23 AM PDT Approved by: Richi Conrad on 02/21/2022 10:23 AM PDT Station ID: [id number]
== END 2022-02-21 08:56 | disposition home or self-care (01) ==
LOC: DI 08:55
PROVIDERS: ATTEND Registered Nurse Obstetric, High-Risk
DX: C54.1 Malignant neoplasm of endometrium (principal); Z08 Encounter for follow-up examination after completed treatment for malignant neoplasm; Z85.42 Personal history of malignant neoplasm of other parts of uterus; R19.03 Right lower quadrant abdominal swelling, mass and lump

== ENCOUNTER 2022-03-01 13:31 | Outpatient (CLI) | payer MEDICARE ==
[2022-03-01 14:37] LABS: CREATININE 0.8 mg/dL (0.4-1.0)
--- NOTE | 2022-03-01 17:58 | CT Report ---
PROCEDURE: Abdomen/Pelvis W INDICATIONS: ENDOMETRIAL CA CONTRAST: IV CONTRAST: Optiray 320 ml: 100 PO CONTRAST: Redi-Cat ml30 TECHNIQUE: After the administration of oral and intravenous contrast, 5 mm thick sections acquired from the diap hragms to the symphysis. 5 mm thick coronal and sagittal reformats were acquired. For radiation dos e reduction, the following was used: automated exposure control, adjustment of mA and/or kV accordin g to patient size. COMPARISON: CT abdomen pelvis and CT chest 04/13/2021. Abdominal wall ultrasound 02/21/2022. FINDINGS: Image quality: Excellent. Images are denoted as (series #/image #). Visualized lung bases: No pleural effusion. Partially imaged circumscribed hyperlucent region of the anteromedial aspect of the left lower lobe, not significantly changed. 5 mm solid right lower lobe pu lmonary nodule (4/8), not significant changed. 4 mm subpleural right middle lobe nodule (4/7) is also similar to before. Few other small pulmonary nodules are similar to before. Liver and biliary tree: No suspect focal hepatic lesion. No biliary ductal dilation. Gallbladder: Surgically absent. Spleen: Unremarkable. Pancreas: Unremarkable. Adrenal glands: Unremarkable. Kidneys and ureters: No hydronephrosis. Gastrointestinal tract: No bowel obstruction. Severe predominantly sigmoid colonic diverticulosis wit hout evidence of acute diverticulitis. Peritoneal cavity: Development of omental/peritoneal nodularity at the right lower abdomen (for examp le , ). No free air or free fluid. Bladder: Several diverticula are present. Pelvic organs: The uterus is not visualized and is presumed surgically absent. Vasculature: No abdominal aortic aneurysm. Lymph nodes: Development of retroperitoneal and pelvic lymphadenopathy. Artificial Insemination Technician lymph nodes in clude: -Left external iliac chain medial group: 1.4 cm (3/59). -Left retroperitoneum, level of the mid kidneys: 1.4 cm (3/30). Abdominal wall: Development of a 2.4 cm mass or collection within the soft tissues of the right lower quadrant abdominal wall (3/40). This likely corresponds to the finding on the recent abdominal ultra sound. On CT, the finding is heterogeneous in appearance but internal density is near water density, approximately 12 Hounsfield units. Musculoskeletal: Degenerative change of the spine. IMPRESSION: 1. Development of pelvic and retroperitoneal lymphadenopathy, nonspecific but suspicious for metastat ic disease. 2. New right lower abdominal omental/peritoneal nodularity, also suspicious for metastatic disease. 3. A 2.4 cm mass or collection is present within the soft tissues of the right lower quadrant abdomin al wall, likely corresponding to the finding on recent limited abdominal ultrasound. It is difficult to definitively characterize however given the near water density on CT and the absence of convincing internal vascularity on prior ultrasound, it could represent a collection such as an evolving hemato ma, seroma, or abscess. However, given findings suspicious for new metastatic disease elsewhere, an a bdominal wall metastasis should be considered. Attention to this finding on future follow-up studies is recommended. Reviewed by: Brad Evans MD on 03/01/2022 5:56 PM PDT Approved by: Brad Evans MD on 03/01/2022 5:56 PM PDT Station ID: [id number]
[2022-03-01] MEDS ORDERED: DIATR MEGLU/DIATRIZOATE SODIUM 120 ML BOTTLE PO ONE (18:34)
== END 2022-03-01 13:32 | disposition home or self-care (01) ==
LOC: LAB 13:31 → DI 13:32
PROVIDERS: ATTEND Registered Nurse Obstetric, High-Risk
DX: R59.0 Localized enlarged lymph nodes (principal); R19.03 Right lower quadrant abdominal swelling, mass and lump; Z85.42 Personal history of malignant neoplasm of other parts of uterus
CPT/HCPCS: 36415; 74177; 82565; 84520; Q9963; Q9967